=== PATIENT | female | born 1990 | race African-American/Black ===

== ENCOUNTER 2019-04-19 17:51 | Emergency (ER) | payer SELFPAY ==
[2019-04-19] MEDS ORDERED: SUCRALFATE 1 GM TABLET ONE (19:07)
[2019-04-19] MEDS ORDERED: SIMETHICONE 80 MG TAB ONE ×2 (19:28→19:33)
--- NOTE | 2019-04-19 19:41 | RAD REPORT ---
EXAM DESCRIPTION: Trae Jordan (2 Views)04/19/2019 7:35 pm CLINICAL HISTORY: Chest pain COMPARISON: none FINDINGS: The lungs appear clear of acute infiltrate. The heart is normal size IMPRESSION: No acute abnormalities displayed
--- NOTE | 2019-04-19 20:45 | ER ---
Nurse's Notes [facility] Name: Nidhi Sosa Age: 28 yrs Sex: Female : 1990 Arrival Date: 04/19/2019 Time: 17:56 Bed 23 Private MD: Diagnosis: Chest pain, unspecified Presentation: 04/19 17:59 Presenting complaint: Patient states: Tight pressure burning pain in chest that goes to la1 back for the last 2 days. Transition of care: patient was not received from another setting of care. Onset of symptoms was April 19, 2019. Risk Assessment: Do you want to hurt yourself or someone else? Patient reports no desire to harm self or others. Initial Sepsis Screen: Does the patient meet any 2 criteria? No. Patient's initial sepsis screen is negative. Does the patient have a suspected source of infection? No. Patient's initial sepsis screen is negative. Care prior to arrival: None. 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 - Social history:: Smoking status: Patient/guardian denies using tobacco. - Ebola Screening: : No symptoms or risks identified at this time. Screenin:32 Abuse screen: Denies threats or abuse. Denies injuries from another. Nutritional ca1 screening: No deficits noted. Tuberculosis screening: No symptoms or risk factors identified. Fall Risk None identified. Assessment: 18:32 General: Appears in no apparent distress. comfortable, Behavior is calm, cooperative, ca1 appropriate for age. Pain: Complains of pain in anterior aspect of left upper chest Pain radiates to back Pain currently is 10 out of 10 on a pain scale. Quality of pain is described as pressure, Pain began 2-3 days ago. Is intermittent. Neuro: Level of Consciousness is awake, alert, obeys commands, Oriented to person, place, time, situation, Appropriate for age. Cardiovascular: Heart tones S1 S2 present Capillary refill < 3 seconds Patient's skin is warm and dry. Rhythm is sinus rhythm. Respiratory: Airway is patent Respiratory effort is even, unlabored, Respiratory pattern is regular, symmetrical, Breath sounds are clear bilaterally. Denies cough, shortness of breath. GI: Abdomen is round non-distended, Bowel sounds present X 4 quads. Abd is soft and non tender X 4 quads. : No deficits noted. No signs and/or symptoms were reported regarding the genitourinary system. EENT: No deficits noted. No signs and/or symptoms were reported regarding the EENT system. Derm: Skin is intact, is healthy with good turgor, Skin is pink, warm \T\ dry. Musculoskeletal: Circulation, motion, and sensation intact. Capillary refill < 3 seconds, Range of motion: intact in all extremities. Vital Signs: 18:00 BP 133 / 83; Pulse 82; Resp 16; Temp 97.1; Pulse Ox 98% on R/A; Weight 104.33 kg; la1 Height 5 ft. 6 in. (167.64 cm); 18:00 Body Mass Index 37.12 (104.33 kg, 167.64 cm) la1 ED Course: 17:56 Patient arrived in ED. mr 18:00 Triage completed. la1 18:01 Arm band placed on left wrist. la1 18:21 Christen Wu, RN is Primary Nurse. ca1 18:32 Patient has correct armband on for positive identification. Placed in gown. Bed in low ca1 position. Call light in reach. Side rails up X 1. Pulse ox on. NIBP on. Warm blanket given. 18:32 No provider procedures requiring assistance completed. Patient maintains SpO2 ca1 saturation greater than 95% on room air. 18:35 EKG completed in triage. Results shown to MD. ca1 18:45 Karyn Meier FNP-C is PHCP. snw 18:45 Jassi Perez MD is Attending Physician. snw 19:35 Chest Pa And Lat (2 Views) XRAY In Process Unspecified. EDMS 21:01 IV discontinued, intact, bleeding controlled, No redness/swelling at site. Pressure la1 dressing applied. Administered Medications: 19:09 Drug: CarafATE 1 grams Route: PO; la1 21:01 Follow up: Response: No adverse reaction la1 19:40 Drug: Simethicone 120 mg Route: PO; la1 21:01 Follow up: Response: No adverse reaction la1 21:01 Drug: Decadron 8 mg Route: PO; la1 21:01 Follow up: Response: No adverse reaction la1 Outcome: 20:44 Discharge ordered by MD. rojas 21:00 Discharged to home ambulatory. la1 21:00 Condition: stable 21:00 Discharge instructions given to patient, Instructed on discharge instructions, follow up and referral plans. medication usage, Demonstrated understanding of instructions, follow-up care, medications, Prescriptions given X 3. 21:02 Patient left the ED. la1 Signatures: Dispatcher [employer] EDMS Karyn Meier, GENETICISTBentonC GENETICIST-Sarah LeyaIndira mr HomerElio, RN RN la1 Christen Wu RN RN ca1
--- NOTE | 2019-04-19 20:45 | EDPHYS ---
Physician Documentation [facility] Name: Nidhi Sosa Age: 28 yrs Sex: Female : 1990 Arrival Date: 04/19/2019 Time: 17:56 Bed 23 Private MD: ED Physician Jassi Perez HPI: 04/19 19:49 This 28 yrs old Black Female presents to ER via Ambulatory with complaints of Chest snw Pain. 19:49 Onset: The symptoms/episode began/occurred suddenly, yesterday. Associated signs and snw symptoms: Pertinent positives: The patient does not have any pertinent positive signs or symptoms associated with pediatric illness. Pertinent negatives: cough, fever, no sob, no diaphoresis, no nausea, no vomiting. The patient has not experienced similar symptoms in the past. The patient has been recently seen by a physician: the patient's primary care provider, with different complaint(s), and apparently was diagnosed with HTN, started on Lisinopril. 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 - Social history:: Smoking status: Patient/guardian denies using tobacco. - Ebola Screening: : No symptoms or risks identified at this time. ROS: 19:49 Constitutional: Negative for fever, chills, and weight loss, Eyes: Negative for injury, snw pain, redness, and discharge, ENT: Negative for injury, pain, and discharge, Neck: Negative for injury, pain, and swelling, Respiratory: Negative for shortness of breath, cough, wheezing, and pleuritic chest pain, Abdomen/GI: Negative for abdominal pain, nausea, vomiting, diarrhea, and constipation, Back: Negative for injury and pain, : Negative for injury, bleeding, discharge, and swelling, MS/Extremity: Negative for injury and deformity, Skin: Negative for injury, rash, and discoloration, Neuro: Negative for headache, weakness, numbness, tingling, and seizure, Psych: Negative for depression, anxiety, suicide ideation, homicidal ideation, and hallucinations. 19:49 Cardiovascular: Positive for chest pain, of the anterior aspect of left upper chest. Exam: 19:49 Constitutional: This is a well developed, well nourished patient who is awake, alert, snw and in no acute distress. Head/Face: Normocephalic, atraumatic. Eyes: Pupils equal round and reactive to light, extra-ocular motions intact. Lids and lashes normal. Conjunctiva and sclera are non-icteric and not injected. Cornea within normal limits. Periorbital areas with no swelling, redness, or edema. ENT: Nares patent. No nasal discharge, no septal abnormalities noted. Tympanic membranes are normal and external auditory canals are clear. Oropharynx with no redness, swelling, or masses, exudates, or evidence of obstruction, uvula midline. Mucous membranes moist. Neck: Trachea midline, no thyromegaly or masses palpated, and no cervical lymphadenopathy. Supple, full range of motion without nuchal rigidity, or vertebral point tenderness. No Meningismus. Chest/axilla: Normal chest wall appearance and motion. Nontender with no deformity. No lesions are appreciated. Cardiovascular: Regular rate and rhythm with a normal S1 and S2. No gallops, murmurs, or rubs. Normal PMI, no JVD. No pulse deficits. Respiratory: Lungs have equal breath sounds bilaterally, clear to auscultation and percussion. No rales, rhonchi or wheezes noted. No increased work of breathing, no retractions or nasal flaring. Abdomen/GI: Soft, non-tender, with normal bowel sounds. No distension or tympany. No guarding or rebound. No evidence of tenderness throughout. Back: No spinal tenderness. No costovertebral tenderness. Full range of motion. Skin: Warm, dry with normal turgor. Normal color with no rashes, no lesions, and no evidence of cellulitis. MS/ Extremity: Pulses equal, no cyanosis. Neurovascular intact. Full, normal range of motion. Neuro: Awake and alert, GCS 15, oriented to person, place, time, and situation. Cranial nerves II-XII grossly intact. Motor strength 5/5 in all extremities. Sensory grossly intact. Cerebellar exam normal. Normal gait. Psych: Awake, alert, with orientation to person, place and time. Behavior, mood, and affect are within normal limits. Vital Signs: 18:00 BP 133 / 83; Pulse 82; Resp 16; Temp 97.1; Pulse Ox 98% on R/A; Weight 104.33 kg; la1 Height 5 ft. 6 in. (167.64 cm); 18:00 Body Mass Index 37.12 (104.33 kg, 167.64 cm) la1 MDM: 19:14 Patient medically screened. snw 20:46 Data reviewed: vital signs, nurses notes. Data interpreted: Pulse oximetry: on room air snw is 98 %. Interpretation: normal. Counseling: I had a detailed discussion with the patient and/or guardian regarding: the historical points, exam findings, and any diagnostic results supporting the discharge/admit diagnosis, radiology results, the need for outpatient follow up, to return to the emergency department if symptoms worsen or persist or if there are any questions or concerns that arise at home. Special discussion: Based on the patient's history, exam, and Dx evaluation, there is no indication for emergent intervention or inpatient Tx. It is understood by the patient/guardian that if the Sx's persist or worsen they need to return immediately for re-evaluation. Based on the history and exam findings, there is no indication for further emergent testing or inpatient evaluation. I discussed with the patient/guardian the need to see the software sales for further evaluation of the symptoms. I discussed with the patient/guardian the need to see the primary care provider for further evaluation of the symptoms. 04/19 19:22 Order name: Chest Pa And Lat (2 Views) XRAY; Complete Time: 19:48 snw Administered Medications: 19:09 Drug: CarafATE 1 grams Route: PO; la1 21:01 Follow up: Response: No adverse reaction la1 19:40 Drug: Simethicone 120 mg Route: PO; la1 21:01 Follow up: Response: No adverse reaction la1 21:01 Drug: Decadron 8 mg Route: PO; la1 21:01 Follow up: Response: No adverse reaction la1 Disposition: 04/19/19 20:44 Discharged to Home. Impression: Chest pain, unspecified. - Condition is Stable. - Discharge Instructions: Nonspecific Chest Pain, Chest Wall Pain, Gastroesophageal Reflux Disease, Adult, Hypertension. - Prescriptions for Diclofenac Sodium 75 mg Oral Tablet Sustained Release - take 1 tablet by ORAL route 2 times per day; 30 tablet. orphenadrine citrate 100 mg Oral Tablet Sustained Release - take 1 tablet by ORAL route 2 times per day As needed; 20 tablet. Pepcid 20 mg Oral Tablet - take 1 tablet by ORAL route once daily; 20 tablet. - Work release form, Medication Reconciliation Form, Thank You Letter, Antibiotic Education, Prescription Opioid Use form. - Follow up: Private Physician; When: 2 - 3 days; Reason: Recheck today's complaints, Continuance of care, Re-evaluation by your physician. Follow up: Emergency Department; When: As needed; Reason: Worsening of condition. Signatures: Dispatcher [employer] EDAR Karyn Meier FNP-C PLANTING MATERIAL REMOVER-CsnElio Anderson RN RN la1 Corrections: (The following items were deleted from the chart) 21:02 20:44 04/19/2019 20:44 Discharged to Home. Impression: Chest pain, unspecified. la1 Condition is Stable. Forms are Medication Reconciliation Form, Thank You Letter, Antibiotic Education, Prescription Opioid Use. Follow up: Private Physician; When: 2 - 3 days; Reason: Recheck today's complaints, Continuance of care, Re-evaluation by your physician. Follow up: Emergency Department; When: As needed; Reason: Worsening of condition. snw
[2019-04-19] MEDS ORDERED: dexAMETHasone 4 MG TAB ONE (20:49)
[2019-04-19 22:11] VITALS: BP 133/83; TEMP 97.1; O2SAT 98
--- NOTE | 2019-04-20 08:31 | EKG ---
Test Date: 2019-04-19 Test Time: 18:28:23 Cooker Casing: WYATT MEASUREMENT RESULTS: Intervals: Rate: 70 FL: 140 QRSD: 90 QT: 382 QTc: 412 Casa: P: 45 FL: 140 QRS: 76 T: 48 INTERPRETIVE STATEMENTS: Normal sinus rhythm with sinus arrhythmia Normal ECG No previous ECG available for comparison Electronically Signed On 04-20-19 08:31:01 CDT by Juliano Hoang
== END 2019-04-19 21:02 | disposition home or self-care (01) ==
LOC: ER 17:51
DX: R07.9 Chest pain, unspecified (principal); I10 Essential (primary) hypertension
CPT/HCPCS: 71046; 93005; 99285; J8540